=== PATIENT | male | born 1930 | race Caucasian/White ===

== ENCOUNTER 2018-10-07 09:46 | Inpatient (IN) | payer MEDICARE, OTHER ==
[~2018-10-07] VITALS: Ht 177.8 cm; Wt 75.2 kg
[~2018-10-07 09:46] MED LIST: CIPR500T8 PO; CLOP75TA52 PO; CYCL1DRO OP; GABA300C PO; OXYC1TAB7 PO; SIMV20TA PO; SUMA25TA3 PO; ZOLP10TA PO
--- NOTE | 2018-10-07 10:24 | NUR ---
BIB [facility] WITH C/O SUDDEN ONSET OF GENERALIZED WEAKNESS WITH [facility] SAT FOR ABOUT 30 MINUTES AND WEAKNESS CONTINUED. CALLED 911. [facility] STATES EKG WITH PVCS AND AT TIMES WAS IN A 2ND DEGREE HEART BLOCK. UPON HAVING PT STAND UP PT BECAME DIZZY AND WAS HELPED BACK INTO [facility]. 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 PULSE OX, AND BP. EKG DONE.
[2018-10-07] MEDS ORDERED: MECLIZINE CHEWABLE 25 MG TAB PO ONE (10:30)
[2018-10-07 10:56] LABS: BASOPHILS # (AUTO) 0.04 x10^3/uL (0-0.1); BASOPHILS % (AUTO) 1 % (0-1); EOSINOPHILS # (AUTO) 0.04 x10^3/uL (0-0.4); EOSINOPHILS % (AUTO) 1 % (1-7); LYMPHOCYTES # (AUTO) 0.81 x10^3/uL (1-3.4); LYMPHOCYTES % (AUTO) 10 % (22-44); MD NO; MEAN CORPUSCULAR HGB CONC 34.2 g/dL (33.2-36.2); MEAN CORPUSCULAR VOLUME 93.7 fL (81-97); MEAN PLATELET VOLUME 9.4 fL (7.4-10.4); MONOCYTES # (AUTO) 0.35 x10^3/uL (0.2-0.8); MONOCYTES % (AUTO) 5 % (2-9); NEUTROPHILS # (AUTO) 6.56 x10^3/uL (1.8-6.8); NEUTROPHILS % (AUTO) 84 % (42-75); PLATELET COUNT 126 x10^3/uL (130-400); RED BLOOD COUNT 5.08 x10^6/uL (4.38-5.82); RED CELL DISTRIBUTION WIDTH 12.8 % (9.4-14.8)
[2018-10-07 11:00] LABS: ALANINE AMINOTRANSFERASE 23 U/L (12-78); ANION GAP 7 mmol/L (5-15); CALCIUM 9.2 mg/dL (8.5-10.1); CHLORIDE 109 mmol/L (98-107)
[2018-10-07 11:03] LABS: ALKALINE PHOSPHATASE 73 U/L (45-117); BILIRUBIN,TOTAL 2.8 mg/dL (0.2-1.0); CREATININE 0.99 mg/dL (0.7-1.3); TOTAL PROTEIN 7.1 g/dL (6.4-8.2); TROPONIN I < 0.015 ng/mL (0.000-0.045)
--- NOTE | 2018-10-07 11:25 | NUR ---
PT TO MRI VIA [facility].
--- NOTE | 2018-10-07 11:26 | NUR ---
ASSUMED CARE OF PT AT THIS TIME.
--- NOTE | 2018-10-07 11:30 | NUR ---
REPORT TO [place].
[2018-10-07] MEDS ORDERED: MECLIZINE CHEWABLE 25 MG TAB ONE (11:32)
--- NOTE | 2018-10-07 11:43 | NUR ---
UNABLE TO MEDICATE PT. PT IN MRI AT THIS TIME.
--- NOTE | 2018-10-07 12:14 | NUR ---
PT MEDICATED PER [facility].
[2018-10-07] MEDS ORDERED: ACETAMINOPHEN 325 MG TABLET PO PRN (13:30)
[2018-10-07] MEDS ORDERED: SUMATRIPTAN 25 MG TABLET PO PRN (13:30)
[2018-10-07] MEDS ORDERED: SENNA/DOCUSATE TABLET PO PRN (13:30)
[2018-10-07] MEDS ORDERED: ONDANSETRON 4 MG TABLET PO PRN (13:30)
[2018-10-07] MEDS ORDERED: ONDANSETRON 2MG/ML, 2ML IVPush PRN (13:30)
[2018-10-07] MEDS ORDERED: ZOLPIDEM 5MG TABLET PO PRN (13:30)
[2018-10-07] MEDS ORDERED: DOCUSATE 100 MG CAPSULE PO PRN (13:30)
[2018-10-07] MEDS ORDERED: BISACODYL 10 MG SUPP PR PRN (13:30)
[2018-10-07] MEDS ORDERED: ENALAPRILAT 1.25 MG/ML, 2ML IV PRN (13:30)
[2018-10-07 15:03] VITALS: BP 163/92
[2018-10-07 15:12] VITALS: BP 160/92
[2018-10-07 19:47] VITALS: BP 137/87
[2018-10-07] MEDS: GABAPENTIN 300 MG CAPSULE PO SCH (21:11)
[2018-10-07] MEDS: ATORVASTATIN 80 MG TABLET PO SCH (21:11)
[2018-10-08] VITALS (7 sets, daily range): BP systolic 126–163; BP diastolic 80–96
[2018-10-08] MEDS ORDERED: ATROPINE SYRINGE 0.1 MG/ML, 10ML ONE (03:00)
[2018-10-08 05:16] LABS: BASOPHILS # (AUTO) 0.03 x10^3/uL (0-0.1); BASOPHILS % (AUTO) 0 % (0-1); EOSINOPHILS # (AUTO) 0.03 x10^3/uL (0-0.4); EOSINOPHILS % (AUTO) 0 % (1-7); LYMPHOCYTES # (AUTO) 0.57 x10^3/uL (1-3.4); LYMPHOCYTES % (AUTO) 7 % (22-44); MD NO; MEAN CORPUSCULAR HEMOGLOBIN 32.5 pg (27.5-34.5); MEAN CORPUSCULAR HGB CONC 34.5 g/dL (33.2-36.2); MEAN CORPUSCULAR VOLUME 94.1 fL (81-97); MEAN PLATELET VOLUME 9.5 fL (7.4-10.4); MONOCYTES # (AUTO) 0.33 x10^3/uL (0.2-0.8); MONOCYTES % (AUTO) 4 % (2-9); NEUTROPHILS # (AUTO) 6.87 x10^3/uL (1.8-6.8); NEUTROPHILS % (AUTO) 88 % (42-75); PLATELET COUNT 141 x10^3/uL (130-400); RED BLOOD COUNT 4.81 x10^6/uL (4.38-5.82); RED CELL DISTRIBUTION WIDTH 13.2 % (9.4-14.8)
[2018-10-08 05:30] LABS: ALBUMIN 3.5 g/dL (3.4-5.0); ANION GAP 4 mmol/L (5-15); CALCIUM 8.6 mg/dL (8.5-10.1); CHLORIDE 109 mmol/L (98-107)
[2018-10-08 05:41] LABS: ALANINE AMINOTRANSFERASE 20 U/L (12-78); ALKALINE PHOSPHATASE 67 U/L (45-117); BILIRUBIN,TOTAL 3.4 mg/dL (0.2-1.0); CHOLESTEROL, TOTAL 122 mg/dL (140-239); CREATININE 0.93 mg/dL (0.7-1.3); HDL CHOL % 49 % (26-37); HDL CHOLESTEROL (DIRECT) 60 mg/dL (40-60); LDL CHOLESTEROL,CALCULATED 49 mg/dL (54-169); LDL/HDL RATIO 0.8 (0.5-3.0); TOTAL PROTEIN 6.4 g/dL (6.4-8.2); TRIGLYCERIDES 67 mg/dL (50-200); VLDL CHOLESTEROL 13 mg/dL (0-25)
[2018-10-08 06:05] LABS: FREE T4 (FREE THYROXINE) 1.02 ng/dL (0.76-1.46)
[2018-10-08] MEDS: ASPIRIN 81 MG TABLET CHEW PO/NG SCH (09:00)
[2018-10-08] MEDS: SODIUM CHLORIDE 0.9% 1,000 ML IV SCH ×2 (10:18→18:18)
[2018-10-08] MEDS ORDERED: CEFAZOLIN PMX 1GM/50ML 50 ML IVPB ONE (10:30)
[2018-10-08] MEDS ORDERED: LIDOCAINE 1%, 20ML ONE (13:44)
[2018-10-08] MEDS ORDERED: MIDAZOLAM 1 MG/ML, 5ML ONE (13:44)
[2018-10-08] MEDS ORDERED: FENTANYL PF 100 MCG/2ML ONE (13:44)
[2018-10-08] MEDS ORDERED: CEFAZOLIN 1,000 MG ONE (13:44)
[2018-10-08] MEDS ORDERED: DIPHENHYDRAMINE 50 MG/ML, 1ML ONE (13:55)
[2018-10-08] MEDS ORDERED: HOLD MEDICATION MC PRN (15:00)
[2018-10-08] MEDS: SODIUM CHLORIDE FLUSH 10ML SYR IVF SCH (20:21)
[2018-10-08] MEDS: ATORVASTATIN 80 MG TABLET PO SCH (20:21)
[2018-10-08] MEDS: GABAPENTIN 300 MG CAPSULE PO SCH (20:21)
[2018-10-08] MEDS: CEFAZOLIN PMX 1GM/50ML 50 ML IVPB SCH (23:26)
[2018-10-09 02:00] VITALS: BP 158/94
[2018-10-09] MEDS: SODIUM CHLORIDE 0.9% 1,000 ML IV SCH ×2 (02:06→09:49)
[2018-10-09] MEDS: CEFAZOLIN PMX 1GM/50ML 50 ML IVPB SCH (06:46)
[2018-10-09 07:30] VITALS: BP 153/99
[2018-10-09] MEDS ORDERED: TAMSULOSIN 0.4 MG CAP.ER.24H PO SCH (09:00)
[2018-10-09] MEDS: ASPIRIN 81 MG TABLET CHEW PO/NG SCH (09:46)
[2018-10-09] MEDS: SODIUM CHLORIDE FLUSH 10ML SYR IVF SCH (09:47)
[2018-10-09] MEDS ORDERED: TAMS-11 PO (13:28)
[2018-10-09] MEDS ORDERED: ATOR-2 PO (13:28)
[2018-10-09 13:44] VITALS: BP 137/88
== END 2018-10-09 15:05 | disposition home health service (06) | DRG 242 ==
LOC: ED 10:55 → EDIP 13:53 → 4EST 14:56 → 5SO 10-08 03:23 → DCLOUNGE 10-09 14:35
PROVIDERS: ADMIT Internal Medicine; ATTEND Internal Medicine
PROC: 02H63JZ Insertion of Pacemaker Lead into Right Atrium, Percutaneous Approach (ICD-10-PCS; principal; 2018-10-08)
PROC: 02HK3JZ Insertion of Pacemaker Lead into Right Ventricle, Percutaneous Approach (ICD-10-PCS; 2018-10-08)
PROC: 0JH606Z Insertion of Pacemaker, Dual Chamber into Chest Subcutaneous Tissue and Fascia, Open Approach (ICD-10-PCS; 2018-10-08)
DX: I44.2 Atrioventricular block, complete (principal); I63.40 Cerebral infarction due to embolism of unspecified cerebral artery; R17 Unspecified jaundice; D69.6 Thrombocytopenia, unspecified; E78.5 Hyperlipidemia, unspecified; N40.1 Benign prostatic hyperplasia with lower urinary tract symptoms; Z66 Do not resuscitate; Z81.1 Family history of alcohol abuse and dependence; Z83.3 Family history of diabetes mellitus; Z95.2 Presence of prosthetic heart valve; R33.8 Other retention of urine; G47.00 Insomnia, unspecified; G43.909 Migraine, unspecified, not intractable, without status migrainosus; Z98.49 Cataract extraction status, unspecified eye
CPT/HCPCS: 33208; 36415; 70450; 70551; 71045; 80053; 80061; 82533; 83735; 84439; 84443; 84481; 84484; 85025; 93005; 93306; 93880; 99156; 99157; 99285; C1779; C1785; C1892; G0378; J0690; J2250; J3010; J3490; 92523-GN; J1200